=== PATIENT | male | born 1985 | race Caucasian/White ===

== ENCOUNTER → 2018-04-06 | Outpatient (CLI) | payer BC ==
--- NOTE | 2018-04-06 19:17 | RAD ---
Examination: TESTICULAR/SCROTUM History: TESTICULAR PAIN Comparison/Correlation: None Findings: Scrotal ultrasound exam was performed. Right testicle measures 3.6 cm x 2.5 cm x 3 cm. Left testicle measures 3.4 cm x 2.8 cm x 4.1 cm. Normal testicular and epididymal echotexture and flow are present. Small bilateral hydroceles are present. Right epididymal head measures 1.5 cm. Left epididymal head measures 1.1 cm. No mass identified. No findings to suggest varicocele. Impression: Small bilateral hydroceles. No evidence of epididymoorchitis or torsion. Electronically signed by: Giovanny Casanova MD (04/06/2018 7:13 PM) [facility]
== END | disposition home or self-care (01) ==
LOC: US 18:28
PROVIDERS: ATTEND Registered Nurse
DX: N43.2 Other hydrocele (principal)
CPT/HCPCS: 76870

== ENCOUNTER → 2019-08-27 | Outpatient (CLI) | payer BC ==
--- NOTE | 2019-08-27 08:55 | RAD ---
PROCEDURE: THORACIC SPINE 3V, CERVICAL SPINE 5V STUDY DATE: 08/27/2019 CLINICAL INDICATION / HISTORY: Reason: BACK PAIN, NECK PAIN / Spl. Instructions: / History: . TECHNIQUE: 5 VIEWS: AP, lateral, bilateral oblique and odontoid COMPARISON: None FINDINGS: Alignment is within normal limits. There is preservation of the normal cervical lordosis. Vertebral body heights and disc spaces are well maintained. The atlantoaxial joint is well maintained. No fracture or subluxation is identified. Oblique views show no significant bony foraminal stenoses. Prevertebral and paraspinous soft tissues are unremarkable. IMPRESSION: No evidence of fracture, significant bony stenosis, or subluxation in the cervical spine. PROCEDURE: THORACIC SPINE 3V, CERVICAL SPINE 5V STUDY DATE: 08/27/2019 CLINICAL INDICATION / HISTORY: Reason: BACK PAIN, NECK PAIN / Spl. Instructions: / History: . TECHNIQUE: Thoracic spine was examined in the AP lateral and swimmers projections. COMPARISON: None FINDINGS: The osseous structures are normally mineralized. There is a normal thoracic kyphosis with normal alignment of the thoracic vertebral bodies. There is preservation of the vertebral body heights as well as the intervertebral disk space heights throughout the thoracic spine. No evidence of acute fracture or subluxation is identified. IMPRESSION: Unremarkable examination of the thoracic spine as described. Electronically signed by: Krish Carrillo MD (08/27/2019 8:52 AM) [id number]
== END ==
LOC: PMG 07:49
PROVIDERS: ATTEND Physician Assistant Medical
DX: M54.2 Cervicalgia (principal); M54.9 Dorsalgia, unspecified
CPT/HCPCS: 72050; 72072

== ENCOUNTER → 2021-06-12 | Outpatient (CLI) | payer BC ==
--- NOTE | 2021-06-12 12:31 | RAD ---
XR CERVICAL SPINE 4-5V DATE: 06/12/2021 11:00 AM INDICATION: CONTINUOUS NECK PAIN, INJURY OCTOBER 2020 COMPARISON: None. FINDINGS: The cervical spine is visualized to the level of the cervicothoracic junction on the latera l views. Bones/Alignment: No evidence of acute fracture. There is no listhesis. Normal alignment of the later al masses of C1 on C2. Joints: The disc space heights are normal. The facets are normally aligned. Facet arthropathy at C7-T 1 Soft tissue: No significant prevertebral soft tissue swelling. IMPRESSION: 1. Normal vertebral body heights, alignment, and disc spaces. 2. 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 Electronically signed by: Harlan Davis MD (06/12/2021 12:29 PM) [id number]
== END ==
LOC: RAD 10:53
PROVIDERS: ATTEND Physician Assistant
DX: M47.813 Spondylosis without myelopathy or radiculopathy, cervicothoracic region (principal)
CPT/HCPCS: 72050

== ENCOUNTER → 2021-08-03 | Outpatient (CLI) | payer BC ==
[~2021-08-03] MED LIST: IBUP800T19 PO; LISI10TA16 PO; MULT-445 PO; SERT25TA PO; cyclobenzaprine PEG
== END ==
LOC: LAB 09:03
PROVIDERS: ATTEND Surgery
DX: Z01.812 Encounter for preprocedural laboratory examination (principal); Z20.822 Contact with and (suspected) exposure to COVID-19
CPT/HCPCS: U0003

== ENCOUNTER → 2021-08-08 | Day surgery (SDC) | payer BC ==
--- NOTE | 2021-08-08 07:48 | PDOC1 ---
History of Present Illness Reason for Visit: Excision of upper right back mass History of Present Illness 36-year-old male with complaints of painful bulge in his right upper shoulder area been present for a number years Allergies: Coded Allergies: erythromycin base (Verified Allergy, Intermediate, rash, 08/08/21) Past Medical History Cardiac: No pertinent hx Pulmonary: No pertinent hx GI: No pertinent hx Heme/Onc: No pertinent hx Hepatobiliary: No pertinent hx Psych: No pertinent hx Musculoskeletal: No pertinent hx Rheumatologic: No pertinent hx ENT: No pertinent hx Renal/: No pertinent hx Endocrine: No pertinent hx Dermatology: No pertinent hx Past Surgical History: Other Family History: No pertinent hx (Surgery on his hand) Past Social History Smoke: No Alcohol: none Lives: with Family Review of Systems Review Of Systems Fourteen system , review of systems has been reviewed. See HPI for pertinent positives and negative responses, other sarah all other systems are negative, non pertinent or non contributory Constitutional: No: Fever, Chills, Sweats, Weakness, Malaise, Other Eyes: No: Blurry vision, Decreased vision, Double vision, Dry eyes, Excessive tearing, Eye Pain, Itchy Eyes, Loss of vision, Photophobia, Scotomata, Uses contacts, Uses glasses, Other ENT: No: Ear pain, Ear discharge, Nose pain, Nose discharge, Nose congestion, Mouth pain, Mouth swelling, Throat pain, Throat swelling, Other Respiratory: No: Cough, Hemoptysis, Orthopnea, Pleuritic Pain, Shortness of breath, SOB with excertion, Sputum Changes, Stridor, Tachypnea, Wheezing, Other Cardiovascular: No: Chest Pain, Palpitations, Orthopnea, Paroxysmal Noc. Dyspnea, Edema, Lt Headedness, Other Gastrointestinal: No: Nausea, Vomiting, Abdominal Pain, Diarrhea, Constipation, Melena, Hematochezia, Other Genitourinary: No: Change in Menstrual Cycle, Dysmenorrhea, Dyspareunia, Dysuria, Flank Pain, Genital Discharge, Genital Ulcers, Henaturia, Incontinence, Irregular/heavy Menses, Nocturia, Pelvic Pain, Scrotal Mass/pain, Slowing Urinary Stream, Urinary Frequency/urgency, Vulvar/vaginal Symptoms, Other Musculoskeletal: No: Gait Disturbance, Joint Pain, Joint Stiffness, Joint Swelling, Muscle Pain, Muscular Weakness, Pain In:, Swelling In:, Other SKIN: No: Warm, Dry, No Rashes, Cool, Diaphoretic, Cyanotic, Rash, Other Neurological: No: Behavorial Changes, Bowel/Bladder ControlChng, Confusion, Dizziness, Gait Disturbance, Headaches, Impaired Coord/balance, Memory Loss, Numbness/Tingling, Seizures, Speech Problems, Tremors, Visual Changes, Weakness, Other Medications Current Medications Bupivacaine HCl/ Epinephrine Bitart (Sensorcaine-Epi 0.25%-1:487350 Mpf) 30 ml STK-MED ONCE .ROUTE ; Start 08/08/21 at 07:33; Stop 08/08/21 at 07:34; Status DC Active Scripts Active Reported Zoloft (Sertraline Hcl) 25 Mg Tablet 1 Tab PO DAILY Lisinopril 10 Mg Tablet 1 Tab PO DAILY Ibuprofen 800 Mg Tablet 1 Tab PO TID [cyclobenzaprine] 1 Tab PEG TID PRN Multivitamins (Multivitamin) 1 Each Tablet 1 Tab PO DAILY Exam Vital Signs Vital Signs Date Time Temp Pulse Resp B/P (MAP) Pulse Ox O2 Delivery O2 Flow Rate FiO2 08/08/21 07:21 98.0 89 16 136/96 (109) 98 Room Air General Appearance: Alert, Oriented X3, Cooperative, No acute distress HEENT: Atraumatic, PERRLA, EOMI Respiratory: Clear to auscultation, Normal air movement Heart: Regular rate, No murmurs Abdominal: Normal bowel sounds, Soft, No tenderness Extremities: No edema, Other (3 cm mass subcutaneous space upper back) Skin: No significant lesion Neuro: Normal speech Psych/Mental Status: Mental status NL Assessment/Plan Assessment/Plan Upper back mass plan excision under local COURSE Allergies Coded Allergies Type Severity Reaction Last Updated Verified erythromycin base Allergy Intermediate rash 08/08/21 Yes Current Medications Medications (Trade) Dose Ordered Sig/Tara Route PRN Reason Start Time Stop Time Status Last Admin Dose Admin Bupivacaine HCl/ Epinephrine Bitart (Sensorcaine-Epi 0.25%-1:775136 Mpf) 30 ml STK-MED ONCE .ROUTE 08/08/21 07:33 08/08/21 07:34 DC Orders Procedure Category Date Status Time Bupivac-Epi PHA 08/08/21 Complete 0.25%-1:[id number] Mpf 07:33 Vital Signs Date Time Temp Pulse Resp B/P (MAP) Pulse Ox O2 Delivery O2 Flow Rate FiO2 08/08/21 07:21 98.0 89 16 136/96 (109) 98 Room Air Justification of Admission: Justification of Admission: Justification of Admission Dx: N/A HONEY SAWANT MD August 08, 2021 07:48
[2021-08-08] MEDS: BUPIVACAINE-EPI 0.25%-1:200000 MPF 30 ML VIAL. ONE (07:58)
[2021-08-08] MEDS: LIDOCAINE 1% Multi-Dose 20 ML VIAL. ONE (08:24)
[2021-08-08 08:37] VITALS: BP 140/94
--- NOTE | 2021-08-08 08:38 | PDOC4 ---
Operative Report DATE August 08, 2021 at 8:35 AM Preop Diagnosis Right upper back lipoma Post-op Diagnosis Same Operation Performed Excision of right upper back mass Patient is a 36-year-old male with complaints of a mass in his right upper back been present for a number years. Procedure of excision was explained to the patient detail risk events were also discussed including bleeding infection alternatives this procedure also discussed with the patient seemed to understand and gave a verbal written consent to have procedure performed. Patient was taken the minors room placed in the prone positioning his right upper back was prepped and draped usual sterile fashion using ChloraPrep. Area around the mass was injected with quarter percent Marcaine with epinephrine incision was made with 15 blade scalpel is carried down through the subcutaneous tissues excising the mass sharply with Metzenbaum scissors and additional 1% lidocaine was also used. Mass was excised and sent for pathology mass size was 6 x 6 cm. Wound was then closed in 2 layers of deep layer running 3-0 Vicryl and the skin was reapproximated for subcuticular Monocryl Mastisol Steri-Strips and island vani ssings were applied. Of note no extra margins were taken. Estimated blood loss 5 mL Surgeon Adan Anesthesiologist Local ANESTHESIA PROPOSED: LOCAL Blood Loss 5 mL Specimen 6 x 6 cm mass Complications None HONEY SAWANT MD August 08, 2021 08:38
--- NOTE | 2021-08-08 08:39 | DISCH ---
DISCHARGE INSTRUCTIONS-DC Condition on Discharge Condition on Discharge: Stable Activity after Discharge Activity Instructions for Disc: No restrictions Diet after Discharge Diet after Discharge: Regular Wound/Incision Care Other wound/incision instructi: Jess showbethany in 24 hours Contacting the DRJay after DC Call your doctor for: If your condition worsens Follow-Up Follow up with: Dr. Sawant in 2 weeks HONEY SAWANT MD August 08, 2021 08:39
== END | disposition home or self-care (01) ==
LOC: SURG 07:01
PROVIDERS: ATTEND Surgery
DX: D17.21 Benign lipomatous neoplasm of skin and subcutaneous tissue of right arm (principal); M47.812 Spondylosis without myelopathy or radiculopathy, cervical region; Z79.899 Other long term (current) drug therapy
CPT/HCPCS: 88304; J3490